=== PATIENT | female | born 1950 | race Caucasian/White ===

== ENCOUNTER 2018-08-30 09:41 | Emergency (ER) | payer MEDICARE, MEDICAID, OTHER | END 2018-08-30 11:31 | disposition home or self-care (01) | LOC: FTE 09:41 | DX: H61.23 Impacted cerumen, bilateral (principal); E11.9 Type 2 diabetes mellitus without complications; Z85.3 Personal history of malignant neoplasm of breast | CPT/HCPCS: 69209; 99283-25 ==